=== PATIENT | male | born 1990 | race Caucasian/White ===

== ENCOUNTER 2019-09-20 19:01 | Emergency (ER) | payer SELFPAY ==
[2019-09-20] MEDS ORDERED: IBUPROFEN 800 MG TABLET PO STA (19:37)
[2019-09-20] MEDS ORDERED: LIDOCAINE 1%-EPI 1:100000 20 ML MDV SUBQ STA (19:37)
[2019-09-20] MEDS ORDERED: TETANUS/DIPHTHERIA/PERTUSSIS 0.5 ML SYRINGE IM ONE (19:37)
[2019-09-20] MEDS ORDERED: BACITRACIN ZINC OINT 1 PACKET TOP STA (19:37)
--- NOTE | 2019-09-20 19:39 | ED Physician Documentation ---
History of Present Illness - Stated complaint Stated Complaint: HEAD LAC - Chief complaint Chief Complaint: Laceration - History obtained from History obtained from: Patient - History of Present Illness Timing: Prior to arrival (29 y/o m struck in face with metal pole while working, c/o laceration, denies loc/head or neck pain. denies taking blood thinners.) Review of Systems Constitutional: reports: Reviewed and negative Eyes: reports: Reviewed and negative Ears: reports: Reviewed and negative Nose: reports: Reviewed and negative Throat: reports: Reviewed and negative Cardiac: reports: Reviewed and negative Respiratory: reports: Reviewed and negative GI: reports: Reviewed and negative : reports: Reviewed and negative Skin: reports: Laceration (s) Musculoskeletal: reports: Reviewed and negative Neurologic: reports: Reviewed and negative Psychiatric: reports: Reviewed and negative Endocrine: reports: Reviewed and negative Immunocompromised: reports: Reviewed and negative PD PAST MEDICAL HISTORY - Past Medical History Past Medical History: No - Past Surgical History Past Surgical History: No - Present Medications Home Medications: Ambulatory Orders Medication Instructions Recorded Confirmed No Known Home Medications 09/20/19 09/20/19 - Allergies Allergies/Adverse Reactions: Allergies Allergy/AdvReac Type Severity Reaction Status Date / Time No Known Drug Allergies Allergy Verified 09/20/19 19:23 - Social History Does the pt smoke?: No Smoking Status: Never smoker Does the pt drink ETOH?: No Does the pt have substance abuse?: No - Immunizations Immunizations: TDAP >10years/unknown PD ED PE NORMAL - Vitals Vital signs reviewed: Yes - General General: Alert and oriented X 3, No acute distress, Well developed/nourished - HEENT HEENT: Atraumatic, PERRL, Other (2 cm laceration to face lateral to left nasal bone, medial to eyebrow, no involvement of the eyelid or eyebrow. 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, No motor deficit, No sensory deficit, Normal speech - Psych Psych: Normal mood, Normal affect PD ED PE EXPANDED - HEENT HEENT Visual: 1 - laceration Results - Vitals Vitals: Vital Signs - 24 hr 09/20/19 19:14 Temperature 36 C L Heart Rate 68 Respiratory 16 Rate Blood Pressure 143/76 H O2 Saturation 98 Oxygen O2 Source Room air Procedures - Laceration (location) Face left Length in cm: 3 Wound type: Linear Neurovascular status: Sensory intact, Motor intact, Vascular intact Tendon involvement: Tendon intact Anesthesia: Lidocaine 1% with epi, Volume - enter cc (3) Wound Preparation: Irrigated copiously NS, Debrided extensively, Wound explored Skin layer closure: Nylon, Size #-0 - enter number (5), Sutures - enter # (5) Other: Patient tolerated well, No complications, Neurovascular intact, Dressing applied, Tetanus booster given Complexity: Intermediate Departure - Departure Disposition: 01 Home, Self Care Clinical Impression: Facial laceration Qualifiers: Encounter type: initial encounter Qualified Code(s): S01.81XA - Laceration without foreign body of other part of head, initial encounter Condition: Stable Instructions: ED Laceration Facial Sutr Tape Follow-Up: your, doctor [Other] Print Language: Stateless Comments: follow up for suture removal in 7 - 10 days. keep wound clean and protected at all times.
[2019-09-20 20:30] VITALS: BP 144/77
== END 2019-09-20 20:30 | disposition home or self-care (01) ==
LOC: ED 19:01
DX: S01.81XA Laceration without foreign body of other part of head, initial encounter (principal); W22.8XXA Striking against or struck by other objects, initial encounter; Y93.89 Activity, other specified; Y99.8 Other external cause status
CPT/HCPCS: 12052; 90471; 90715; 99282; 99283; A9270